=== PATIENT | female | born 1990 | race African-American/Black ===

== ENCOUNTER 2018-04-16 12:19 | Emergency (ER) | payer SELFPAY ==
[~2018-04-16] VITALS: Ht 180.3 cm; Wt 63.4 kg
[2018-04-16 12:21] VITALS: BP 105/62
[2018-04-16] MEDS ORDERED: AMOXICILLIN875 MG PO (13:32)
== END 2018-04-16 13:39 | disposition home or self-care (01) ==
LOC: EME 12:19
DX: J02.9 Acute pharyngitis, unspecified (principal)
CPT/HCPCS: 87077; 87081; 87651 90; 99281; 99283